=== PATIENT | male | born 1995 | race Caucasian/White ===

== ENCOUNTER 2017-08-20 12:48 | Day surgery (SDC) | payer BC ==
[~2017-08-20] VITALS: Ht 182.9 cm; Wt 79.5 kg
[~2017-08-20 12:48] MED LIST: CRUTCHES MC
[2017-08-20 13:44] LABS: COLLECTION METHOD CLEAN CATCH
[2017-08-20 13:48] LABS: BASO % 0.4 % (0.0-2.0); EOS # 0.4 (0.0-0.7); EOS % 3.5 % (0-4.0); HEMATOCRIT 42.7 % (42.0-52.0); HEMOGLOBIN 14.5 g/dl (13.5-18.0); LYMPH # 2.6 (1.2-3.4); LYMPH % 24.5 % (20.0-51.0); MEAN CELL VOLUME 91 fl (80.0-100.0); MEAN CORPUSCULAR HEMOGLOBIN 31 pg (27.0-31.0); MEAN CORPUSCULAR HGB CONC 34 g/dl (33.0-37.0); MONO # 0.6 (0.1-0.6); MONO % 5.3 % (1.7-9.3); PLATELET COUNT 310 K/mm3 (130-400); RED BLOOD COUNT 4.69 M/mm3 (4.20-5.60); REDCELL DISTRIBUTION WIDTH-CV 12.9 % (11.5-14.5)
[2017-08-20 13:52] LABS: MUCOUS Present /lpf; PH 7 (5-8); SQUAMOUS EPITHELIAL 0-2 /hpf; URINE APPEARANCE Clear; URINE BACTERIA None Seen /hpf; URINE BILIRUBIN Negative (NEGATIVE); URINE BLOOD Negative (NEGATIVE); URINE COLOR Yellow; URINE GLUCOSE Negative (NEGATIVE); URINE KETONE Negative (NEGATIVE); URINE LEUKOCYTE ESTERASE Negative (NEGATIVE); URINE NITRATE Negative (NEGATIVE); URINE PROTEIN(semi-quant) Negative (NEGATIVE); URINE RBC 0-2 /hpf; URINE UROBILINOGEN Negative (NEGATIVE)
[2017-08-20 13:59] LABS: ALBUMIN 5.1 gm/dL (3.5-5.0); BILIRUBIN,TOTAL 0.7 mg/dL (0.0-1.0); C-REACTIVE PROTEIN 5.5 mg/dL (0.0-0.9); CALCIUM 9.3 mg/dL (8.4-10.2); CREATININE, serum 0.86 mg/dL (0.66-1.25); TOTAL PROTEIN 8.5 gm/dL (6.4-8.2)
[2017-08-20 18:39] VITALS: BP 128/78; PULSE 75; TEMP 98.2
[2017-08-20 19:08] VITALS: BP 128/79; PULSE 62
[2017-08-20 19:23] VITALS: BP 133/78; PULSE 69
[2017-08-20 19:53] VITALS: BP 128/79; PULSE 76; TEMP 98.2
[2017-08-20 21:35] VITALS: BP 141/85; PULSE 101
[2017-08-20 22:29] VITALS: BP 148/82; PULSE 90; TEMP 98.5
[2017-08-21 01:25] VITALS: BP 117/48; PULSE 96; TEMP 97.6
[2017-08-21 05:10] VITALS: BP 104/47; PULSE 60; TEMP 97.6
[2017-08-21] MEDS ORDERED: NORCO 325 MG-51 TAB PO (08:41)
== END 2017-08-21 09:20 | disposition home or self-care (01) ==
LOC: COL.ER 12:48 → SDCO 16:52 → SURG 18:30 → SDCO 08-21 09:20
PROVIDERS: Physician Assistant
DX: K35.80 Unspecified acute appendicitis (principal); D12.1 Benign neoplasm of appendix; Z87.891 Personal history of nicotine dependence
CPT/HCPCS: OP; J0171; J1100; J1885; J2405; J2543; J2704; J2710; J3010; J7030; Q9967